=== PATIENT | male | born 1965 | race Caucasian/White ===

== ENCOUNTER 2017-01-19 08:09 | Day surgery (SDC) | payer BC ==
--- NOTE | ~2017-01-19 | EGD ---
EGD REPORT [facility] [address] [place] [address] NAME: PETE RIZVI : 67 STATUS : REG [facility] [place] PAT#: [id number] AGE: 51 ADM/REG DATE : 01/19/17 MR#: [id number] REPORT SERV DATE: 01/19/17 DICTATED BY: LEONID SHIN DATE: 01/19/17 REPORT STATUS : Draft TRANSCRIBED BY: [facility] DATE: 01/19/17 Endoscopy Center Patient Name: Pete Rizvi Date of : 1965 Attending MD: PROMISE VÁZQUEZ MD Procedure Date No Time: 01/19/2017 Procedure: Colonoscopy Indications: Screening for colorectal malignant neoplasm; average risk; index exam. Patient Profile: Informed consent was obtained from the patient by me prior to the procedure. Risks, benefits, and alternatives were discussed including the risk of bleeding, perforation, infection, reaction to medicine, missed lesion, and cardiopulmonary complications. Referring MD: CRISS MCCORMACK MD Medicines: Monitored Anesthesia Care Complications: No immediate complications. Procedure: Pre-Anesthesia Assessment: - ASA Grade Assessment: III - A patient with severe systemic disease. After I obtained informed consent, the scope was passed under direct vision. Throughout the procedure, the patient's blood pressure, pulse, and oxygen saturations were monitored continuously. The CF [id number] was introduced through the anus and advanced to the cecum, identified by appendiceal orifice and ileocecal valve. The colonoscope was slowly withdrawn with careful examination all mucosal surfaces including specific attention around flexures and tip deflection behind folds; retroflexion performed in rectum. The colonoscopy was performed without difficulty. The patient tolerated the procedure well. The quality of the bowel preparation was adequate. The ileocecal valve, appendiceal orifice and rectum were photographed. Findings: Two flat polyps were found in the rectum. The polyps were 3 to 5 mm in size. These polyps were removed with a cold biopsy forceps. Resection and retrieval were complete. A single small-mouthed diverticulum was found in the cecum. Impression: - Two 3 to 5 mm polyps in the rectum. Resected and retrieved. - Diverticulosis in the cecum. EGD REPORT [address] [address] NAME: PETE RIZVI : [birth year] STATUS : REG [facility] [place] PAT#: [id number] AGE: 51 ADM/REG DATE : 01/19/17 MR#: [id number] REPORT SERV DATE: 01/19/17 DICTATED BY: LEONID SHIN DATE: 01/19/17 REPORT STATUS : Draft TRANSCRIBED BY: [employer] DATE: 01/19/17 Recommendation: - Patient has a contact number available for emergencies. The signs and symptoms of potential delayed complications were discussed with the patient. Return to normal activities tomorrow. Written discharge instructions were provided to the patient. - Regular diet. - Continue present medications. - Await pathology results. - Repeat colonoscopy for surveillance based on pathology results. Procedure Code(s): --- Professional --- 69462, Colonoscopy, flexible, proximal to splenic flexure; with biopsy, single or multiple Diagnosis Code(s): --- Professional --- K62.1, Rectal polyp K57.30, Diverticulosis of large intestine without perforation or abscess without bleeding Z12.11, Encounter for screening for malignant neoplasm of colon CPT copyright 2013 [employer]. All rights reserved. The codes documented in this report are preliminary and upon remote medical coder review may be revised to meet current compliance requirements. PROMISE VÁZQUEZ MD 01/19/2017 10:32 AM This report has been signed electronically. Number of Addenda: 0 Note Initiated On: 01/19/2017 10:02 AM Scope Withdrawal Time 0 hours 11 minutes 35 seconds [address] [place] [id number]
[~2017-01-19 08:09] MED LIST: CO Q 10 PO; COREG25 PO; ECHINACEA PO; GARLIC PO; L20 PO; LIPITOR40 PO; LISINOPRIL40 MG PO; MULTIPLE VIT PO; PARSLEY PO; TAZTIA X3 PO; TRAVATAN OPH; VITAMIN D1000 UNI1 PO; Z100 PO
== END 2017-01-19 23:59 | disposition home or self-care (01) ==
LOC: DMU 08:09
PROVIDERS: Internal Medicine Gastroenterology
PROC: 0DBP8ZZ Excision of Rectum, Via Natural or Artificial Opening Endoscopic (ICD-10-PCS; principal; 2017-01-19 10:30)
DX: Z12.11 Encounter for screening for malignant neoplasm of colon (principal); K62.1 Rectal polyp; K57.30 Diverticulosis of large intestine without perforation or abscess without bleeding; I13.0 Hypertensive heart and chronic kidney disease with heart failure and stage 1 through stage 4 chronic kidney disease, or unspecified chronic kidney disease; N18.3 Chronic kidney disease, stage 3 (moderate); I50.9 Heart failure, unspecified; M10.9 Gout, unspecified
CPT/HCPCS: 82962; 88305